=== PATIENT | male | born 1995 | race Two or more races ===

== ENCOUNTER 2017-02-28 04:28 | Emergency (ER) | payer SELFPAY ==
[~2017-02-28] VITALS: Ht 175.3 cm; Wt 79.5 kg
[2017-02-28 04:34] VITALS: Ht 175.3 cm; Wt 79.5 kg
[2017-02-28 05:43] VITALS: BP 147/74
== END 2017-02-28 05:43 | disposition home or self-care (01) ==
LOC: ED 04:28
DX: S01.111A Laceration without foreign body of right eyelid and periocular area, initial encounter (principal); W20.8XXA Other cause of strike by thrown, projected or falling object, initial encounter; Y93.89 Activity, other specified; Y99.8 Other external cause status; Y92.89 Other specified places as the place of occurrence of the external cause
CPT/HCPCS: 90715